=== PATIENT | female | born 1955 | race Caucasian/White ===

== ENCOUNTER 2017-02-11 09:32 | Emergency (ER) | payer OTHER, MEDICARE ==
[~2017-02-11] VITALS: Ht 156.2 cm; Wt 57.6 kg
[2017-02-11] MEDS ORDERED: ATORVASTATIN CA10 M1 PO (10:23)
[2017-02-11] MEDS ORDERED: NITROFURANTOIN100 M6 PO (10:23)
[2017-02-11] MEDS ORDERED: TOPIRAMATE25 M2 PO (10:23)
[2017-02-11] MEDS ORDERED: FORTEO2.4 ML SC (10:23)
[2017-02-11] MEDS ORDERED: TRAZODONE HCL50 M1 PO (10:24)
[2017-02-11] MEDS ORDERED: BUPROPION XL300 M1 PO (10:24)
[2017-02-11] MEDS ORDERED: LORAZEPAM1 M1 PO (10:24)
[2017-02-11] MEDS ORDERED: FLUOXETINE HCL20 M2 PO (10:24)
[2017-02-11] MEDS ORDERED: RELPAX40 M1 PO (10:25)
[2017-02-11] MEDS ORDERED: MULTIVITAMINS1 EAC8 PO (10:26)
[2017-02-11] MEDS ORDERED: COQ-1030 MG PO (10:26)
--- NOTE | 2017-02-11 10:26 | CT SCAN REPORT ---
EXAMINATION: CT HEAD WITHOUT CONTRAST CLINICAL INFORMATION: Fall with hitting head and loss of consciousness COMPARISON: None TECHNIQUE: Contiguous axial imaging was performed from the skull base to vertex without intravenous administration of contrast. DLP: 600.71 mGy-cm FINDINGS: There is no evidence of acute intracranial hemorrhage or territorial infarction. No abnormal mass effect or midline shift is seen. Davila to white matter differentiation is well preserved. No extra-axial fluid collections are identified. The ventricles are mildly prominent. No periventricular white matter low density identified 2 suggest either microangiopathy or transependymal flow of CSF. There is no abnormal attenuation within the brain parenchyma. The osseous structures and soft tissues are normal. The mastoid air cells and visualized portions of the paranasal sinuses are well aerated. There is calcification of the right tentorium. IMPRESSION: No acute intracranial pathology. Mild prominence of the ventricular system.
[2017-02-11] MEDS ORDERED: OCUVITE SOFTGE1 EACH PO (10:27)
[2017-02-11] MEDS ORDERED: PROBIOTIC1 EACH PO (10:27)
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
[2017-02-11 12:08] VITALS: BP 107/71
== END 2017-02-11 12:09 ==
LOC: ERH 09:32
DX: S00.81XA Abrasion of other part of head, initial encounter (principal); R55 Syncope and collapse; W19.XXXA Unspecified fall, initial encounter; Y93.89 Activity, other specified; Y92.009 Unspecified place in unspecified non-institutional (private) residence as the place of occurrence of the external cause
CPT/HCPCS: 93005; 93010; 96372; J2765